=== PATIENT | male | born 1975 | race African-American/Black ===

== ENCOUNTER 2016-07-27 14:08 | Emergency (ER) | payer OTHER ==
[2016-07-27 14:31] VITALS: BP 150/107; PULSE 99; TEMP 98.3; BMI 34.4
[2016-07-27] MEDS ORDERED: IBUPROFEN 600 MG TABLET (FP) PO ONE ×2 (15:00→15:08)
--- NOTE | 2016-07-27 15:09 | PDOC ---
History of Present Illness - General Chief Complaint: Pain Stated Complaint: LEFT ANKLE INJURY Time Seen by Provider: 07/27/16 14:53 History Source: Patient Exam Limitations: No Limitations - History of Present Illness Initial Comments: CHIEF COMPLAINT: 41 y/o afebrile male with PMH HTN c/o atraumatic left ankle pain. HISTORY OF PRESENT ILLNESS: The patient states he was bowling last night and does not recall an injury but woke up this morning and his left ankle was very painful, swollen and he couldn't put pressure on it. Vital signs on arrival are notable for pulse of 150/107. REVIEW OF SYSTEMS: GENERAL/CONSTITUTIONAL: No fever/chills. No weakness. No weight change. MUSCULOSKELETAL: +left ankle swelling and pain. No neck or back pain. SKIN: No rash or easy bruising. NEUROLOGIC: No headache, vertigo, loss of consciousness, or loss of sensation. PHYSICAL EXAM: VITAL_SIGNS: within normal limits GENERAL_APPEARANCE: alert, cooperative, no obvious discomfort. MENTAL_STATUS: speech clear, oriented X 3, responds appropriately to questions. NEURO: motor intact and sensory intact in injured extremity. EXTREMITIES: good pulse in injured extremity. Minimal swelling to medial malleolus and top of left foot with TTP in both locations. Pain with flexion and extension. No calf TTP no bulging to achilles area. SKIN: warm, dry, good color. Past History - Past Medical History Allergies/Adverse Reactions: Allergies Allergy/AdvReac Type Severity Reaction Status Date / Time No Known Allergies Allergy Verified 07/27/16 14:27 Home Medications: Ambulatory Orders Naproxen [Naprosyn -] 500 mg PO BID #14 tablet 07/27/16 HTN: Yes - Psycho/Social/Smoking Cessation Hx Anxiety: No Suicidal Ideation: No Smoking History: Never smoked Have you smoked in the past 12 months: No Hx Alcohol Use: No Drug/Substance Use Hx: No Substance Use Type: Alcohol *Physical Exam - Vital Signs Last Vital Signs Temp Pulse Resp BP Pulse Ox 98.3 F 99 H 19 150/107 97 07/27/16 14:27 07/27/16 14:27 07/27/16 14:27 07/27/16 14:27 07/27/16 14:27 ED Treatment Course - RADIOLOGY Radiology Studies Ordered: Category Date Time Status ANKLE & FOOT-LEFT* [RAD] Stat Radiology 07/27/16 15:00 Ordered Medical Decision Making - Medical Decision Making A/P: 41 y/o male with atraumatic left foot and ankle pain. Possible gout. He informs me he has not taken his BP meds today. Plan is as follows: 1. xray 2. PO motrin Xray left foot/ankle IMPRESSION: No acute fracture seen. Suspect gout as patient continues to deny trauma. Will send rx for naproxen. Suggested he f/u with Dr. Henry and Dr. Azevedo within 1 week for follow up. Pt also given SISI bandage for comfort. The patient verbalizes understanding of all instructions, has no further questions and is awaiting discharge. *DC/Admit/Observation/Transfer Diagnosis at time of Disposition: Gout Qualifiers: Gout site: ankle Gout etiology: unspecified cause Laterality: left Chronicity: acute Qualified Code(s): M10.9 - Gout, unspecified - Discharge Dispostion Disposition: HOME Condition at time of disposition: Good - Prescriptions Prescriptions: Naproxen [Naprosyn -] 500 mg PO BID #14 tablet - Referrals Referrals: Thomas Henry MD [Primary Care Provider] - Jimi Azevedo MD [Staff Physician] - - Patient Instructions Printed Discharge Instructions: DI for Gout, How To Perform RICE (Rest, Ice, Compress, Elevate) Additional Instructions: Discharge Instructions: -A prescription was called to your pharmacy; please take as prescribed -Use SISI bandage for comfort. -Follow up with Dr. Henry within 1 week -Follow up with Dr. Azevedo within 1 week if no improvement in symptoms - Post Discharge Activity Work/School Note: Back to Work
== END 2016-07-27 16:11 | disposition home or self-care (01) ==
LOC: JERFT 14:08
DX: M10.9 Gout, unspecified (principal); I10 Essential (primary) hypertension
CPT/HCPCS: 73610-TC-LT; 73630-TC-LT; 99281-25

== ENCOUNTER 2016-10-22 12:41 | Emergency (ER) | payer OTHER ==
[2016-10-22 13:08] VITALS: BP 169/95; PULSE 91; TEMP 98.2; BMI 36.5
--- NOTE | 2016-10-22 13:41 | PDOC ---
History of Present Illness - General Chief Complaint: Cold Symptoms Stated Complaint: SORE THROAT Time Seen by Provider: 10/22/16 13:26 History Source: Patient - History of Present Illness Timing/Duration: reports: other Associated Symptoms: reports: cough. denies: chest pain/soreness, fever/chills , shortness of breath, wheezing Past History - Past Medical History Allergies/Adverse Reactions: Allergies Allergy/AdvReac Type Severity Reaction Status Date / Time No Known Allergies Allergy Verified 10/22/16 13:02 Home Medications: Ambulatory Orders NK [No Known Home Medication] 10/22/16 HTN: Yes - Psycho/Social/Smoking Cessation Hx Anxiety: No Suicidal Ideation: No Smoking History: Never smoked Have you smoked in the past 12 months: No Hx Alcohol Use: No Drug/Substance Use Hx: No Substance Use Type: Alcohol Review of Systems - Review of Systems Constitutional: No: Chills, Fever Respiratory: Yes: Cough. No: Shortness of Breath Cardiac (ROS): No: Chest Pain *Physical Exam - Vital Signs Last Vital Signs Temp Pulse Resp BP Pulse Ox 98.2 F 91 H 19 169/95 99 10/22/16 13:02 10/22/16 13:02 10/22/16 13:02 10/22/16 13:02 10/22/16 13:02 - Physical Exam General Appearance: Yes: Appropriately Dressed. No: Apparent Distress HEENT: positive: Normal ENT Inspection, Normal Voice. negative: Scleral Icterus (R), Scleral Icterus (L) Neck: positive: Supple Respiratory/Chest: positive: Lungs Clear, Normal Breath Sounds. negative: Respiratory Distress Cardiovascular: positive: Regular Rate, S1, S2 Extremity: positive: Normal Inspection Integumentary: positive: Dry, Warm Neurologic: positive: Fully Oriented, Alert, Normal Mood/Affect Medical Decision Making - Medical Decision Making 10/22/16 13:37 41 yo male, h/o HTN, here w/ productive cough x 1 month, worse at nights. Has been taking otc meds w/ some relief. Here today because he noticed "blood streak " in his phlegm on 1 occasion. No SOB, CP, f/c. Denies night sweats or weight loss. No tob use, sick contacts or recent travel See exam Cough M/l viral Stable w/ clear chest/lungs -dc w/ otc meds -pmd f/u *DC/Admit/Observation/Transfer Diagnosis at time of Disposition: URI (upper respiratory infection) Qualifiers: URI type: unspecified viral URI Qualified Code(s): J06.9 - Acute upper respiratory infection, unspecified; B97.89 - Other viral agents as the cause of diseases classified elsewhere - Discharge Dispostion Disposition: HOME Condition at time of disposition: Good - Patient Instructions Printed Discharge Instructions: DI for Viral Upper Respiratory Infection -- Adult Additional Instructions: Please follow up with your PMD
== END 2016-10-22 13:40 | disposition home or self-care (01) ==
LOC: JERFT 12:41
DX: J06.9 Acute upper respiratory infection, unspecified (principal); B97.89 Other viral agents as the cause of diseases classified elsewhere; I10 Essential (primary) hypertension
CPT/HCPCS: 99281-25

== ENCOUNTER 2018-01-28 03:53 | Emergency (ER) | payer OTHER ==
[2018-01-28 04:29] VITALS: PULSE 98; BMI 32.5
[2018-01-28] MEDS ORDERED: NAPROXEN 500 MG TABLET (FP) PO ONE (04:54)
--- NOTE | 2018-01-28 04:59 | PDOC ---
History of Present Illness - General Chief Complaint: Pain Stated Complaint: R FOOT PAIN Time Seen by Provider: 01/28/18 04:46 History Source: Patient Exam Limitations: No Limitations - History of Present Illness Initial Comments: 01/28/18 04:55 HISTORY OF PRESENT ILLNESS: 43-year-old male with past medical history of hypertension presents emergency Department with atraumatic right foot pain for the past 2 days. Patient states he was sitting in bed when he felt the pain which is slowly grown over the past 2 days is currently 7/10. No recent travel or sick contacts. PAST MEDICAL HISTORY: HTN SURGICAL HISTORY: Denies ALLERGIES: No known drug allergies REVIEW OF SYSTEMS General/Constitutional: Denies fever or chills. Denies weakness, weight change. HEENT: Denies change in vision. Denies ear pain or discharge. Denies sore throat. Cardiovascular: Denies chest pain or shortness of breath. Respiratory: Denies cough, wheezing, or hemoptysis. Gastrointestinal: Denies nausea, vomiting, diarrhea or constipation. Denies rectal bleeding. Genitourinary: Denies dysuria, frequency, or change in urination. Musculoskeletal: Right foot pain. Denies neck or back pain. Skin and breasts: Denies rash or easy bruising. Neurologic: Denies headache, vertigo, loss of consciousness, or loss of sensation. Psychiatric: Denies depression or anxiety. Endocrine: Denies increased thirst. Denies abnormal weight change. Hematologic/Lymphatic: Denies anemia, easy bleeding, or history of blood clots. Allergic/Immunologic: Denies hives or skin allergy. Denies latex allergy. PHYSICAL EXAM General Appearance: Well-appearing, appropriately dressed. No apparent distress , no intoxication. HEENT: EOMI, PERRLA, normal ENT inspection, normal voice, TMs normal, pharynx normal. No conjunctival pallor. No photophobia, scleral icterus. Neck: Supple. Trachea midline. No tenderness, rigidity, carotid bruit, stridor , lymphadenopathy, or thyromegaly. Respiratory/Chest: Lungs CTAB. No shortness of breath, chest tenderness, respiratory distress, accessory muscle use. No crackles, rales, rhonchi, stridor , wheezing, dullness Cardiovascular: RRR. S1, S2. No JVD, murmur, bradycardia, tachycardia. Vascular Pulses: Dorsalis-Pedis (R): 2+, Dorsalis-Pedis (L): 2+ Gastrointestinal/Abdominal: Normal bowel sounds. Abdomen soft, non-distended. No tenderness or rebound tenderness. No organomegaly, pulsatile mass, guarding, hernia, hepatomegaly, splenomegaly. Lymphatic: No adenopathy, tenderness. Musculoskeletal/Extremities: Normal inspection. FROM of all extremities, normal capillary refill. Pelvis Stable. No CVA tenderness. Right 5th metatarsal tenderness. Integumentary: Appropriate color, dry, warm. No cyanosis, erythema, jaundice or rash Neurologic: planning consultant II-XII intact. Fully oriented, alert. Appropriate mood/affect. Motor strength 5/5. No appreciable EOM palsy, facial droop or sensory deficit. Past History - Past Medical History Allergies/Adverse Reactions: Allergies Allergy/AdvReac Type Severity Reaction Status Date / Time No Known Allergies Allergy Verified 01/28/18 04:27 Home Medications: Ambulatory Orders Nebivolol HCl [Bystolic] 10 mg PO DAILY 01/28/18 Olmesartan/Amlodipin/Hcthiazid [Tribenzor 40-10-12.5 mg Tablet] 1 each PO DAILY 01/28/18 traMADol HCL [Ultram -] 50 mg PO Q6H PRN #20 tablet MDD 4 01/28/18 COPD: No HTN: Yes - Suicide/Smoking/Psychosocial Hx Smoking History: Never smoked Have you smoked in the past 12 months: No Information on smoking cessation initiated: No Hx Alcohol Use: No Drug/Substance Use Hx: No Substance Use Type: Alcohol *Physical Exam - Vital Signs Last Vital Signs Temp Pulse Resp BP Pulse Ox 98.4 F 98 H 20 159/98 99 01/28/18 04:27 01/28/18 04:27 01/28/18 04:27 01/28/18 04:27 01/28/18 04:27 ED Treatment Course - RADIOLOGY Radiology Studies Ordered: Category Date Time Status ANKLE & FOOT-RIGHT* [RAD] Stat Radiology 01/28/18 04:54 Ordered Medical Decision Making - Medical Decision Making 01/28/18 04:58 A/P: 43-year-old male with atraumatic right foot pain for 2 days Tenderness to palpation over the fifth metatarsal of the right foot No deformities or crepitus palpated X-rays, Annerosyn, reassess 01/28/18 05:35 X-ray of the foot and ankle as read by me: No acute fractures or dislocations noted. No significant change from study done 09/14/14. I'll discharge the patient home with podiatry follow-up. *DC/Admit/Observation/Transfer Diagnosis at time of Disposition: Foot pain Qualifiers: Laterality: right Qualified Code(s): M79.671 - Pain in right foot - Discharge Dispostion Disposition: HOME Condition at time of disposition: Stable Decision to Admit order: No - Prescriptions Prescriptions: traMADol HCL [Ultram -] 50 mg PO Q6H PRN #20 tablet MDD 4 PRN Reason: Pain - Referrals Referrals: Thomas Henry MD [Primary Care Provider] - Bora Mckeon MD [Staff Physician] - - Patient Instructions Additional Instructions: Take Naprosyn as needed for pain. Follow manufacture's instructions for appropriate dosage. You have been given a referral for [employer] [facility]. Call to make an appointment for continued evaluation. Return to emergency department for any concerns. - Post Discharge Activity
[2018-01-28] MEDS ORDERED: ACETAMINOPHEN 500 MG TABLET (FP) PO ONE (05:53)
[2018-01-28 06:08] VITALS: BP 146/78; TEMP 98.5
== END 2018-01-28 06:09 | disposition home or self-care (01) ==
LOC: JER 03:53
DX: M79.671 Pain in right foot (principal)
CPT/HCPCS: 73610-TC-RT-FY; 73630-TC-RT-FY; 99281-25

== ENCOUNTER → 2018-04-02 | Emergency (ER) | payer OTHER ==
[2018-04-02 02:25] VITALS: BP 141/72; PULSE 82; TEMP 97.9; BMI 28.3
== END | disposition left against medical advice (07) ==
LOC: JER 00:56
DX: Z53.21 Procedure and treatment not carried out due to patient leaving prior to being seen by health care provider (principal)
CPT/HCPCS: 99281-25

== ENCOUNTER 2019-01-26 14:39 | Inpatient (IN) | payer OTHER ==
--- NOTE | 2019-01-26 16:32 | PDOC ---
History of Present Illness - General Chief Complaint: Abnormal Lab Results (Outside) Stated Complaint: Abnormal Lab Results Time Seen by Provider: 01/26/19 15:47 History Source: Patient Exam Limitations: No Limitations - History of Present Illness Initial Comments: 01/26/19 19:22 44 yo M with a hx of ETOH abuse and HTN presents with atraumatic right knee pain and swelling. Has been ongoing for 2 days, with worsening today. Sharp pain with range of motion with a throbbing sensation at rest. Denies fevers. Denies recent ticks. Denies innoculation in the area. Denies hx of gout, but endorses father having it. Has a hx of binge drinking liquor. PE: drained 30 cc of cloudy yellow fluid without pus. Past History - Past Medical History Allergies/Adverse Reactions: Allergies Allergy/AdvReac Type Severity Reaction Status Date / Time No Known Allergies Allergy Verified 04/02/18 02:25 Home Medications: Ambulatory Orders Nebivolol HCl [Bystolic] 10 mg PO DAILY 01/28/18 Olmesartan/Amlodipin/Hcthiazid [Tribenzor 40-10-12.5 mg Tablet] 1 each PO DAILY 01/28/18 traMADol HCL [Ultram -] 50 mg PO Q6H PRN #20 tablet MDD 4 01/28/18 COPD: No HTN: Yes - Psycho Social/Smoking Cessation Hx Smoking History: Never smoked Have you smoked in the past 12 months: No Information on smoking cessation initiated: No Hx Alcohol Use: No Drug/Substance Use Hx: No Substance Use Type: Alcohol *Physical Exam - Vital Signs Last Vital Signs Temp Pulse Resp BP Pulse Ox 98.8 F 85 19 162/100 99 01/26/19 14:43 01/26/19 14:43 01/26/19 14:43 01/26/19 14:43 01/26/19 14:43 ED Treatment Course - LABORATORY CBC & Chemistry Diagram: 01/26/19 16:30 01/26/19 16:30
[2019-01-26] MEDS ORDERED: LIDOCAINE HCL 1% PRESERVATIVE FREE - 30ML VIAL IO ONE (16:38)
[2019-01-26 16:43] LABS: BASO % 1.1 % (0-2.0); EOS % 2.3 % (0-4.5); HEMATOCRIT 38.1 % (35.4-49); HEMOGLOBIN 13.4 GM/dL (11.7-16.9); LYMPH % 20.3 % (8-40); MCH 34.1 pg (25.7-33.7); MCHC 35.3 g/dl (32.0-35.9); MEAN CELL VOLUME 96.7 fl (80-96); MEAN PLT VOLUME 9.5 fl (7.5-11.1); MONO % 12.3 % (3.8-10.2); PLATELET COUNT 232 K/MM3 (134-434); RBC 3.94 M/mm3 (4.00-5.60); RDW 16.4 % (11.9-15.9); WHITE BLOOD COUNT 8.7 K/mm3 (4.0-10.0)
--- NOTE | 2019-01-26 16:48 | PDOC ---
Attending Attestation - Resident Resident Name: Terrance Lazar - ED Attending Attestation I have performed the following: I have examined & evaluated the patient, The case was reviewed & discussed with the resident, I agree w/resident's findings & plan, Exceptions are as noted - HPI HPI: 01/26/19 16:46 44 M with h/o ETOH abuse presents to ED with R knee pain and abnormal labs. Pt reports several days of R knee swelling and pain. Denies any trauma or injury. No ankle swelling. NO h/o DVT. No recent travel/immobilization. Pt denies F/C. Pt was seen at [facility] and had bloodwork done that revealed K 2.3. Pt was subsequently sent to ED for further evaluation. - Physicial Exam PE: 01/26/19 16:47 "GENERAL: Awake, alert, and fully oriented, in no acute distress. HEAD: No signs of trauma EYES: PERRLA, EOMI, sclera anicteric, conjunctiva clear ENT: Auricles normal inspection, hearing grossly normal, nares patent, oropharynx clear without exudates. Moist mucosa NECK: Nontender, no stepoffs, Normal ROM, supple, no lymphadenopathy, JVD, or masses LUNGS: Breath sounds equal, clear to auscultation bilaterally. No wheezes, and no crackles HEART: Regular rate and rhythm, normal S1 and S2, no murmurs, rubs or gallops ABDOMEN: Soft, nontender, normoactive bowel sounds. No guarding, no rebound. No masses EXTREMITIES: + R knee with joint effusion, erythema, ROM limited 2/2 pain NEUROLOGICAL: Cranial nerves II through XII intact. 5/5 strength and sensation in all extremities, Normal speech, normal gait, normal cerebellar function SKIN: Warm, Dry, normal turgor, no rashes or lesions noted. - Medical Decision Making 01/26/19 16:47 44 M with R knee pain and swelling. Pseudogout vs gout. Septic arthritis unlikely as pt afebrile. Pt also with reported K 2.3, will recheck. - CBC, CMP, Mg, Phos, uric acid - XR R knee - Arthrocentesis 01/26/19 17:35 Repeat K 3.4 without repletion. Suspect lab error at urgent care. Uric acid elevated, consistent with gout 01/26/19 18:41 Arthrocentesis performed with cloudy yellow synovial fluid Synovial fluid studies sent
[2019-01-26 17:19] LABS: ALBUMIN 3.7 g/dl (3.4-5.0); BLOOD UREA NITROGEN 18.9 mg/dL (7-18); CALCIUM 8.7 mg/dL (8.5-10.1); CREATININE 1.5 mg/dL (0.55-1.3); MAGNESIUM 1.9 mg/dL (1.8-2.4); PHOSPHOROUS 4.4 mg/dL (2.5-4.9); POTASSIUM 3.4 mmol/L (3.5-5.1); TOT PROT 7.6 g/dl (6.4-8.2); URIC ACID 10.5 mg/dL (2.6-7.2)
[2019-01-26] MEDS ORDERED: POTASSIUM CHLORIDE TABS 20 MEQ TABLET.ER (FP) PO ONE ×2 (17:35→17:39)
[2019-01-26] MEDS ORDERED: LIDOCAINE HCL 1%, 10 MG/ML (20ML VIAL) ONE (17:39)
[2019-01-26] MEDS ORDERED: SODIUM CHLORIDE 1,000 ML IV STA (18:07)
[2019-01-26] MEDS ORDERED: predniSONE 20 MG TABLET (UD) PO ONE (19:54)
--- NOTE | 2019-01-26 19:54 | PDOC ---
ED Treatment Course - LABORATORY CBC & Chemistry Diagram: 01/26/19 16:30 01/26/19 16:30 Medical Decision Making - Medical Decision Making Pt signed out to me by Dr. Lazar, see prior note. 44 year old male with PMH ETOH abuse, HTN presented to ED for atraumatic right knee pain/swelling x2 days. Knee was erythematous and warm. Arthrocentesis performed by prior resident, Dr. Lazar, syncovial fluid reported to be sent. Pt has DOMINIC and mild hypokalemia, treating with IV fluids/PO potassium. Pt to be discharged and treated for gout. Initial Vital Signs Temp Pulse Resp BP Pulse Ox 98.8 F 85 19 162/100 99 01/26/19 14:43 01/26/19 14:43 01/26/19 14:43 01/26/19 14:43 01/26/19 14:43 Afebrile. No tachycardia. No tachypnea. Mild hypertension. No hypoxia on room air. ED Medications Discontinued Medications Generic Name Dose Route Start Last Admin Trade Name Freq PRN Reason Stop Dose Admin Sodium Chloride 1,000 mls @ 1,000 mls/hr 01/26/19 18:07 01/26/19 19:52 Normal Saline - IV 01/26/19 19:06 1,000 mls/hr ASDIR STA Administration Lidocaine HCl 20 mg 01/26/19 16:38 01/26/19 17:42 Xylocaine 1% P/F - IO 01/26/19 16:39 20 mg ONCE ONE Administration Potassium Chloride 20 meq 01/26/19 17:35 01/26/19 17:42 K-Dur - PO 01/26/19 17:36 20 meq ONCE ONE Administration 01/26/19 22:23 Laboratory Last Values WBC 8.7 K/mm3 (4.0-10.0) 01/26/19 16:30 RBC 3.94 M/mm3 (4.00-5.60) L 01/26/19 16:30 Hgb 13.4 GM/dL (11.7-16.9) 01/26/19 16:30 Hct 38.1 % (35.4-49) 01/26/19 16:30 MCV 96.7 fl (80-96) H 01/26/19 16:30 MCH 34.1 pg (25.7-33.7) H 01/26/19 16:30 MCHC 35.3 g/dl (32.0-35.9) 01/26/19 16:30 RDW 16.4 % (11.9-15.9) H 01/26/19 16:30 Plt Count 232 K/MM3 (134-434) 01/26/19 16:30 MPV 9.5 fl (7.5-11.1) 01/26/19 16:30 Absolute Neuts (auto) 5.6 K/mm3 (1.5-8.0) 01/26/19 16:30 Neutrophils % 64.0 % (42.8-82.8) 01/26/19 16:30 Lymphocytes % 20.3 % (8-40) 01/26/19 16:30 Monocytes % 12.3 % (3.8-10.2) H 01/26/19 16:30 Eosinophils % 2.3 % (0-4.5) 01/26/19 16:30 Basophils % 1.1 % (0-2.0) 01/26/19 16:30 Nucleated RBC % 0 % (0-0) 01/26/19 16:30 Sodium 137 mmol/L (136-145) 01/26/19 16:30 Potassium 3.4 mmol/L (3.5-5.1) L 01/26/19 16:30 Chloride 98 mmol/L (98-107) 01/26/19 16:30 Carbon Dioxide 28 mmol/L (21-32) 01/26/19 16:30 Anion Gap 11 MMOL/L (8-16) 01/26/19 16:30 BUN 18.9 mg/dL (7-18) H 01/26/19 16:30 Creatinine 1.5 mg/dL (0.55-1.3) H 01/26/19 16:30 Est GFR (CKD-EPI)AfAm 64.69 01/26/19 16:30 Est GFR (CKD-EPI)NonAf 55.82 01/26/19 16:30 Random Glucose 75 mg/dL (74-106) 01/26/19 16:30 Uric Acid 10.5 mg/dL (2.6-7.2) H 01/26/19 16:30 Calcium 8.7 mg/dL (8.5-10.1) 01/26/19 16:30 Phosphorus 4.4 mg/dL (2.5-4.9) 01/26/19 16:30 Magnesium 1.9 mg/dL (1.8-2.4) 01/26/19 16:30 Total Bilirubin 1.0 mg/dL (0.2-1) 01/26/19 16:30 AST 31 U/L (15-37) 01/26/19 16:30 ALT 35 U/L (13-61) 01/26/19 16:30 Alkaline Phosphatase 64 U/L (45-117) 01/26/19 16:30 Total Protein 7.6 g/dl (6.4-8.2) 01/26/19 16:30 Albumin 3.7 g/dl (3.4-5.0) 01/26/19 16:30 Synovial Source Synovial 01/26/19 18:46 Synovial WBC 58480 /mm3 01/26/19 18:46 Synovial RBC 1957 /mm3 01/26/19 18:46 Synovial Neutrophils 89 % 01/26/19 18:46 Synovial Lymphocytes 9 % 01/26/19 18:46 Synovial Monocytes 2 % 01/26/19 18:46 Synovial Histocytes 0 % 01/26/19 18:46 Synovial Plasma Cells 0 % 01/26/19 18:46 Synovial LE Cells 0 % 01/26/19 18:46 Synovial Macrophages 0 % 01/26/19 18:46 Synovial Other Cells No Result Required. 01/26/19 18:46 Synovial Diff Comment 01/26/19 18:46 Mild hypokalemia without hypomagnesium. Elevated uric acid. Elevated WBC >2K. Lab reported crystals will be back tomorrow. Medications ordered: prednisone 40 mg PO once -NSAIDs and Colchicine C/A in DOMINIC Dr. Troncoso, ID, paged for recommendations. 01/26/19 23:04 Dr. Troncoso recommended Vancomycin/Zosyn treatment, admission, and he will consult tomorrow. Pt to be admitted and treated for septic arthritis until crystal testing comes back. Discharge - Discharge Information Problems reviewed: Yes Clinical Impression/Diagnosis: Septic arthritis, Gout Condition: Stable - Admission Yes - Additional Discharge Information Prescriptions: predniSONE [Deltasone -] 40 mg PO DAILY #20 tablet - Follow up/Referral - Patient Discharge Instructions - Post Discharge Activity
[2019-01-26] MEDS ORDERED: predniSONE 20 MG TABLET (UD) ONE (21:12)
[2019-01-26 22:00] LABS: SYNOVIAL FLUID LYMPHOCYTES 9 %; SYNOVIAL FLUID MONOCYTES 2 %; SYNOVIAL FLUID NEUTROPHILS 89 %; SYNOVIAL FLUID RBC 1957 /mm3; SYNOVIAL FLUID SOURCE SYNOVIAL
[2019-01-26 22:01] LABS: SYNOVIAL FLUID HISTIOCYTES 0 %; SYNOVIAL FLUID MACROPHAGES 0 %; SYNOVIAL FLUID PLASMA CELLS 0 %
[2019-01-26] MEDS ORDERED: VANCOMYCIN 1,000 MG in DEXTROSE 5%-WATER - 250 ML IVPB ONE (22:59)
[2019-01-26] MEDS ORDERED: PIPERACILLIN/TAZOB 4.5 GM 4.5 GM in DEXTROSE 5%-WATER 100 ML IVPB ONE (22:59)
[2019-01-26] MEDS ORDERED: PIPERACILLIN/TAZOB 4.5 GM 4.5 GM/100 ML BAG IVPB ONE (23:43)
[2019-01-26] MEDS ORDERED: VANCOMYCIN 1 GRAM (PRE-DOCKED) 1,000 MG/250 ML BAG IVPB ONE (23:43)
--- NOTE | 2019-01-27 00:10 | PN ---
Teaching Attending Note Name of Resident: Dionne Bridges ATTENDING PHYSICIAN STATEMENT I saw and evaluated the patient. I reviewed the resident's note and discussed the case with the resident. I agree with the resident's findings and plan as documented. SUBJECTIVE: 44-year-old male with a history of EtOH abuse and hypertension presented complaining of atraumatic right knee pain and swelling for 2 days. Denied any fevers or chills. Was seen at urgent care center who referred him to hospital. Arthrocentesis was performed in ER by resident and was noted to have dark yellow synovial fluid nonpurulent. Suspected to have inflammatory arthritis, Dr. de los santos was called and recommended vancomycin and Zosyn To cover for possible infectious etiology.Of note, patient was given a dose of prednisone in the emergency department. Patient denied any history of Lyme disease or any known tick bites. Denies any personal history of gout however reported that his father had gout. OBJECTIVE: Last Vital Signs Temp Pulse Resp BP Pulse Ox 98.3 F 85 19 167/100 100 01/26/19 17:23 01/26/19 17:23 01/26/19 17:23 01/26/19 17:23 01/26/19 17:23 GENERAL: Well developed, well nourished. Awake and alert. No acute distress. HEENT: Normocephalic, atraumatic. PERRLA, EOMI. No conjunctival pallor. Sclera are non- icteric. Moist mucous membranes. Oropharynx is clear. NECK: Supple. Full ROM. No JVD. Carotid pulses 2+ and symmetric, without bruits. No thyromegaly. No lymphadenopathy. CARDIOVASCULAR: Regular rate and rhythm. No murmurs, rubs, or gallops. Distal pulses are 2+ and symmetric. PULMONARY: No evidence of respiratory distress. Lungs clear to auscultation bilaterally. No wheezing, rales or rhonchi. ABDOMINAL: Soft. Non-tender. Non-distended. No rebound or guarding. No organomegaly. Normoactive bowel sounds. MUSCULOSKELETAL Normal range of motion at all joints. No bony deformities or tenderness. No CVA tenderness. EXTREMITIES: Right knee mildly inflamed, mildly warm and tender to touch SKIN: Warm and dry. Normal capillary refill. No rashes. No jaundice. PSYCHIATRIC: Cooperative. Good eye contact. Appropriate mood and affect. Abnormal Lab Results 1001/26/19 01/26/19 16:30 16:30 16:30 RBC 3.94 L MCV 96.7 H MCH 34.1 H RDW 16.4 H Monocytes % 12.3 H Potassium 3.4 L BUN 18.9 H Creatinine 1.5 H Uric Acid 10.5 H Imaging reviewed ASSESSMENT AND PLAN: Right knee inflammatory arthritis. Right knee synovial fluid was yellow in color with WBC of 12 K and neutrophil predominance which is more suggestive of crystal arthropathy. Suspect gout versus pseudogout. Less likely to be infectious arthritis however would obtain Gram stain and culture of synovial fluid. DOMINIC versus CKD, no prior chemistry to compare. Patient denied history of kidney disease that he knows about Hypokalemia Admit to MedSurg Continue empiric vancomycin and Zosyn Blood cultures Gram stain and synovial fluid bacterial culture ID consultation ESR and CRP Await crystals in synovial fluid Tylenol for pain Avoid NSAIDs in this case due to DOMINIC versus CKD IV fluid hydration Much lower suspicion however can send a Lyme serology as Lyme disease can present with mono articular arthritis EtOH cessation and hold antihypertensive medication as it contains hydrochlorothiazide DVT prophylaxis with heparin subcutaneously
[2019-01-27 03:52] VITALS: BMI 34.1
[2019-01-27] MEDS ORDERED: ACETAMINOPHEN 325 MG TABLET (FP) PO PRN (04:39)
[2019-01-27] MEDS: SODIUM CHLORIDE 1,000 ML IV SCH ×2 (05:08→16:24)
[2019-01-27] MEDS: HEPARIN NA (PORCINE) 5,000 UNITS/ML 1ML VIAL SQ SCH ×2 (05:10→13:43)
--- NOTE | 2019-01-27 06:52 | HP ---
CHIEF COMPLAINT: right knee pain PCP: Dr. Arthur HISTORY OF PRESENT ILLNESS: 44 y/o male w/ hx ETOH abuse and HTN presents with 2 days of right knee pain and swelling. 4 days ago, patient had steak and cheese for lunch and 2 bagels and cheese for breakfast. The patient describes his pain as an throbbing , constant ,rated a 7/10 and w/o radiation.He denies fever, chills, vomiting, trauma, facial rash ,BANUELOS, hematuria, dysuria, penile discharge, history of bleeding disorder or recent illness. The pain is exacerbated by ambulation and relieved by nothing including Advil.The patient admits to binge drinking 1 day ago which increased his swelling. He endorsed similar symptoms in the past but in his left ankle at that time with last episode one month ago. Father w/ HX of gout.He denies family history of lupus or RA. Last STI test was 6 months ago and was normal. In the ED, arthrocentesis was performed and 30cc of yellow non purulent fluid was removed and sent for analysis. ER course was notable for: (1) K :3.4, creatinine 1.5, uric acid 105 (2)Synovial fluid anaylsis sent, xray of knee showed no fx, Prednisone 40 (3) ID consult Dr. Aba doherty/gabriel until cultures return Recent Travel: PAST MEDICAL HISTORY: PAST SURGICAL HISTORY: left arm tendon repair Social History: Smoking:denies tobacco use Alcohol: ETOH use last time yesterday reports binge drinking on weekends Drugs: denies Allergies No Known Allergies Allergy (Verified 04/02/18 02:25) HOME MEDICATIONS: Home Medications Medication Instructions Recorded Nebivolol HCl [Bystolic] 10 mg PO DAILY 01/28/18 Olmesartan/Amlodipin/Hcthiazid 1 each PO DAILY 01/28/18 [Tribenzor 40-10-12.5 mg Tablet] traMADol HCL [Ultram -] 50 mg PO Q6H PRN #20 tablet MDD 4 01/28/18 predniSONE [Deltasone -] 40 mg PO DAILY #20 tablet 01/26/19 Amlodipine Besylate 5 mg DAILY 01/27/19 Fluocinonide 0.05% Cream [Lidex 1 applic TP DAILY 01/27/19 0.05% Cream -] Hydrochlorothiazide [Hctz -] 25 mg PO DAILY 01/27/19 REVIEW OF SYSTEMS CONSTITUTIONAL: Absent: fever, chills, diaphoresis, generalized weakness, malaise, loss of appetite, weight change HEENT: Absent: rhinorrhea, nasal congestion, throat pain, throat swelling, difficulty swallowing, mouth swelling, ear pain, eye pain, visual changes CARDIOVASCULAR: Absent: chest pain, syncope, palpitations, irregular heart rate, lightheadedness , peripheral edema RESPIRATORY: Absent: cough, shortness of breath, dyspnea with exertion, orthopnea, wheezing, stridor, hemoptysis GASTROINTESTINAL: Absent: abdominal pain, abdominal distension, nausea, vomiting, diarrhea, constipation, melena, hematochezia GENITOURINARY: Absent: dysuria, frequency, urgency, hesitancy, hematuria, flank pain, genital pain MUSCULOSKELETAL: arthralgia, joint swelling Absent: myalgia,back pain, neck pain SKIN: Absent: rash, itching, pallor HEMATOLOGIC/IMMUNOLOGIC: Absent: easy bleeding, easy bruising, lymphadenopathy, frequent infections ENDOCRINE: Absent: unexplained weight gain, unexplained weight loss, heat intolerance, cold intolerance NEUROLOGIC: Absent: headache, focal weakness or paresthesias, dizziness, unsteady gait, seizure, mental status changes, bladder or bowel incontinence PSYCHIATRIC: Absent: anxiety, depression, suicidal or homicidal ideation, hallucinations. PHYSICAL EXAMINATION Vital Signs - 24 hr 01/26/19 01/26/19 01/27/19 14:43 17:23 01:39 Temperature 98.8 F 98.3 F Pulse Rate 85 Pulse Rate [ 85 85 Apical] Respiratory 19 19 20 Rate Blood Pressure 162/100 Blood Pressure 167/100 168/98 [Left Arm] O2 Sat by Pulse 99 100 99 Oximetry (%) 01/27/19 01/27/19 01/27/19 03:42 03:55 05:19 Temperature 98.8 F 98.0 F Pulse Rate 90 93 H Pulse Rate [ Apical] Respiratory 20 20 20 Rate Blood Pressure 141/93 147/100 Blood Pressure [Left Arm] O2 Sat by Pulse 98 Oximetry (%) GENERAL: Awake, alert, and fully oriented, in no acute distress. HEAD: Normal with no signs of trauma. EYES: Pupils equal, round and reactive to light, extraocular movements intact, sclera anicteric, conjunctiva clear. No lid lag. EARS, NOSE, THROAT: Ears normal, nares patent, oropharynx clear without exudates. Moist mucous membranes. NECK: Normal range of motion, supple without lymphadenopathy, JVD, or masses. LUNGS: Breath sounds equal, clear to auscultation bilaterally. No wheezes, and no crackles. No accessory muscle use. HEART: Regular rate and rhythm, normal S1 and S2 without murmur, rub or gallop. ABDOMEN: Soft, nontender, obese, normoactive bowel sounds, no guarding, no rebound, no masses. No hepatomegaly or splenomegaly. MUSCULOSKELETAL: Normal range of motion at joints except for R knee extension. + tenderness. No CVA tenderness. UPPER EXTREMITIES: 2+ pulses, warm, well-perfused. No cyanosis. No clubbing. No peripheral edema. LOWER EXTREMITIES: 2+ pulses, warm, well-perfused. No calf tenderness. No peripheral edema. PSYCHIATRIC: Cooperative. Good eye contact. Appropriate mood and affect. SKIN: Warm, dry, normal turgor, no rashes or lesions noted, normal capillary refill. Laboratory Results - last 24 hr 01/26/19 01/26/19 01/26/19 16:30 16:30 16:30 WBC 8.7 RBC 3.94 L Hgb 13.4 Hct 38.1 MCV 96.7 H MCH 34.1 H MCHC 35.3 RDW 16.4 H Plt Count 232 MPV 9.5 Absolute Neuts (auto) 5.6 Neutrophils % 64.0 Lymphocytes % 20.3 Monocytes % 12.3 H Eosinophils % 2.3 Basophils % 1.1 Nucleated RBC % 0 Sodium 137 Potassium 3.4 L Chloride 98 Carbon Dioxide 28 Anion Gap 11 BUN 18.9 H Creatinine 1.5 H Est GFR (CKD-EPI)AfAm 64.69 Est GFR (CKD-EPI)NonAf 55.82 Random Glucose 75 Uric Acid 10.5 H Calcium 8.7 Phosphorus 4.4 Magnesium 1.9 Total Bilirubin 1.0 AST 31 ALT 35 Alkaline Phosphatase 64 Total Protein 7.6 Albumin 3.7 Synovial Source Synovial WBC Synovial RBC Synovial Neutrophils Synovial Lymphocytes Synovial Monocytes Synovial Histocytes Synovial Plasma Cells Synovial LE Cells Synovial Macrophages Synovial Other Cells Synovial Diff Comment 01/26/19 18:46 WBC RBC Hgb Hct MCV MCH MCHC RDW Plt Count MPV Absolute Neuts (auto) Neutrophils % Lymphocytes % Monocytes % Eosinophils % Basophils % Nucleated RBC % Sodium Potassium Chloride Carbon Dioxide Anion Gap BUN Creatinine Est GFR (CKD-EPI)AfAm Est GFR (CKD-EPI)NonAf Random Glucose Uric Acid Calcium Phosphorus Magnesium Total Bilirubin AST ALT Alkaline Phosphatase Total Protein Albumin Synovial Source Synovial Synovial WBC 01927 Synovial RBC 1957 Synovial Neutrophils 89 Synovial Lymphocytes 9 Synovial Monocytes 2 Synovial Histocytes 0 Synovial Plasma Cells 0 Synovial LE Cells 0 Synovial Macrophages 0 Synovial Other Cells No Result Required. Synovial Diff Comment ASSESSMENT/PLAN: 44 y/o male w/ hx ETOH abuse and HTN presents with 2 days of right knee pain and swelling. admitted for inflammatory arthritis; r/o septic arthritis Acute monoarthritis : most likely inflammatory vs septic arthritis SF WBC 32122, RBC 1957, Neutrophils 80 non inflammatory causes unlikely due high SF WBC >2k sepsis cant yet be r/o despite WBC <50k ID Dr Troncoso consulted. rec cont Vanc and zosyn until analysis and cultures return Blood cultures sent for r/o hematogenous seeding ESR and CRP for inflammatory markers though unlikely like serology ( endemic area) [facility] sent per pt recent STD screen WNL with no urinary symptoms tylenol for pain. Avoid steroids for now until septic r/o NSAIDS and Colchicine C/i due to DOMINIC/CKD Do Not HTZD as it can cont to increase serum Uric acid HTN Resume meds except for HTZD once med rec confirm DVT Hep subQ Visit type - Emergency Visit Emergency Visit: Yes ED Registration Date: 01/26/19 Care time: The patient presented to the Emergency Department on the above date and was hospitalized for further evaluation of their emergent condition. - New Patient This patient is new to me today: Yes Date on this admission: 01/27/19 - Critical Care Critical Care patient: No ATTENDING PHYSICIAN STATEMENT I saw and evaluated the patient. I reviewed the resident's note and discussed the case with the resident. I agree with the resident's findings and plan as documented. SUBJECTIVE: OBJECTIVE: ASSESSMENT AND PLAN:
[2019-01-27] MEDS ORDERED: PIPERACILLIN/TAZOB 4.5 GM 4.5 GM in DEXTROSE 5%-WATER 100 ML IVPB ONE (08:00)
[2019-01-27] MEDS ORDERED: POTASSIUM CHLORIDE TABS 20 MEQ TABLET.ER (FP) PO ONE (09:19)
[2019-01-27] MEDS ORDERED: PIPERACILLIN/TAZOBACTAM 4.5 GM VIAL IVPB ONE (10:06)
[2019-01-27] MEDS ORDERED: DEXTROSE 5%-WATER 100 ML IVPB ONE (10:06)
--- NOTE | 2019-01-27 11:31 | CON.ID ---
Consult Consult Specialty:: infectious diseases Referred by:: Hospitalist Reason for Consultation:: rt knee effusion - History of Present Illness Chief Complaint: swelling of the rt knee History of Present Illness: 44 y/o male w/ hx ETOH abuse and HTN presents with 2 days of right knee pain and swelling. 4 days ago, patient had steak and cheese for lunch and 2 bagels and cheese for breakfast. The patient describes his pain as an throbbing , constant ,rated a 7/10 and w/o radiation.He denies fever, chills, vomiting, trauma, facial rash ,BANUELOS, hematuria, dysuria, penile discharge, history of bleeding disorder or recent illness. The pain is exacerbated by ambulation and relieved by nothing including Advil.The patient admits to binge drinking 1 day ago which increased his swelling. He endorsed similar symptoms in the past but in his left ankle at that time with last episode one month ago. Father w/ HX of gout.He denies family history of lupus or RA. Last STI test was 6 months ago and was normal. In the ED, arthrocentesis was performed and 30cc of yellow non purulent fluid was removed and sent for analysis. - Alcohol/Substance Use Hx Alcohol Use: Yes - Smoking History Smoking history: Never smoked Have you smoked in the past 12 months: No Home Medications - Allergies Allergies/Adverse Reactions: Allergies Allergy/AdvReac Type Severity Reaction Status Date / Time No Known Allergies Allergy Verified 04/02/18 02:25 - Home Medications Home Medications: Ambulatory Orders Nebivolol HCl [Bystolic] 10 mg PO DAILY 01/28/18 Olmesartan/Amlodipin/Hcthiazid [Tribenzor 40-10-12.5 mg Tablet] 1 each PO DAILY 01/28/18 traMADol HCL [Ultram -] 50 mg PO Q6H PRN #20 tablet MDD 4 01/28/18 predniSONE [Deltasone -] 40 mg PO DAILY #20 tablet 01/26/19 Amlodipine Besylate 5 mg DAILY 01/27/19 Fluocinonide 0.05% Cream [Lidex 0.05% Cream -] 1 applic TP DAILY 01/27/19 Hydrochlorothiazide [Hctz -] 25 mg PO DAILY 01/27/19 Physical Exam Vital Signs: Vital Signs Temperature 98.0 F 01/27/19 05:19 Pulse Rate 93 H 01/27/19 05:19 Respiratory Rate 20 01/27/19 05:19 Blood Pressure 147/100 01/27/19 05:19 O2 Sat by Pulse Oximetry (%) 98 01/27/19 03:55 Labs: CBC, BMP 01/26/19 16:30 01/26/19 16:30
[2019-01-27] MEDS ORDERED: VANCOMYCIN 1 GRAM (PRE-DOCKED) 1,000 MG/250 ML BAG IVPB ONE (12:00)
[2019-01-27] MEDS ORDERED: NEBIVOLOL 10 MG TABLET (FP) PO SCH (13:22)
[2019-01-27] MEDS ORDERED: amLODIPine BESYLATE 5 MG TABLET (FP) PO ONE (13:30)
[2019-01-27 14:19] VITALS: BP 159/109; PULSE 81; TEMP 98.2
--- NOTE | 2019-01-27 14:36 | EKG ---
Test Reason : Blood Pressure : / mmHG Vent. Rate : 084 BPM Atrial Rate : 084 BPM P-R Int : 140 ms QRS Dur : 082 ms QT Int : 382 ms P-R-T Axes : 024 019 080 degrees QTc Int : 451 ms NORMAL SINUS RHYTHM POSSIBLE LEFT ATRIAL ENLARGEMENT NONSPECIFIC T WAVE ABNORMALITY ABNORMAL ECG NO PREVIOUS ECGS AVAILABLE Confirmed by VINICIO RINCON MD ([id number]) on 01/27/2019 2:36:23 PM Referred By: Confirmed By:VINICIO RINCON MD
--- NOTE | 2019-01-27 14:40 | PN ---
Teaching Attending Note Name of Resident: Opal Bourne ATTENDING PHYSICIAN STATEMENT I saw and evaluated the patient. I reviewed the resident's note and discussed the case with the resident. I agree with the resident's findings and plan as documented. SUBJECTIVE: No fever or chills. pain in R knee is much better . can walk. reprots episodes of ankles becoming painful and red one at a time. no BANUELOS , SOB or cp OBJECTIVE: NAD Cv : RRR Lungs: CTAB Ext: no edema or erythema. on LLE . R knee with slight edema , increased warmth , no effusion detected on exam. no erythema. no TTP . bends knee 90 degrees. ASSESSMENT AND PLAN: 44 y/o man with h/o HTN, and ETOH abuse who presented with R knee pain and swelling. 1- R knee pain and effusion: due to crystal induced inflammatory Arthritis. synovial fluild analysis reviewed. G stainneg . cx pending . will call lab for type of crystals ( gout vs pseudogout ) will repeat BMp to decide on tyle of treatment if gout will ask him not to resume his HCTZ> send urine for Gonorrhea. low suspicion lyme pending 2- H/o HTN: will confirm meds and resume 3- Sy VS CKD. on IVF. repeat BMP now dispo : possible dc home today
[2019-01-27 14:54] LABS: BASO % 0.7 % (0-2.0); EOS % 0.5 % (0-4.5); HEMATOCRIT 37.9 % (35.4-49); LYMPH % 14.7 % (8-40); MCH 32.9 pg (25.7-33.7); MCHC 34.3 g/dl (32.0-35.9); MEAN CELL VOLUME 95.8 fl (80-96); MEAN PLT VOLUME 10.2 fl (7.5-11.1); MONO % 8.6 % (3.8-10.2); NEUT % 75.5 % (42.8-82.8); PLATELET COUNT 252 K/MM3 (134-434); RBC 3.96 M/mm3 (4.00-5.60); RDW 16.5 % (11.9-15.9); WHITE BLOOD COUNT 10.1 K/mm3 (4.0-10.0)
[2019-01-27 15:23] LABS: ALBUMIN 3.3 g/dl (3.4-5.0); BILIRUBIN,TOTAL 0.7 mg/dL (0.2-1); BLOOD UREA NITROGEN 19.3 mg/dL (7-18); CALCIUM 8.4 mg/dL (8.5-10.1); CREATININE 1.3 mg/dL (0.55-1.3); MAGNESIUM 1.8 mg/dL (1.8-2.4); POTASSIUM 3.4 mmol/L (3.5-5.1); TOT PROT 7.5 g/dl (6.4-8.2)
[2019-01-27 16:49] LABS: ALBUMIN 3.4 g/dl (3.4-5.0); BILIRUBIN,TOTAL 0.5 mg/dL (0.2-1); BLOOD UREA NITROGEN 18.8 mg/dL (7-18); CALCIUM 8.6 mg/dL (8.5-10.1); CREATININE 1.3 mg/dL (0.55-1.3); POTASSIUM 3.5 mmol/L (3.5-5.1); TOT PROT 7.5 g/dl (6.4-8.2)
--- NOTE | 2019-01-27 18:53 | DS ---
Physical Exam: SUBJECTIVE: Patient seen and examined. Pt appears comfortable. Pt reports no c/ o or issues. No fever, asymptomatic and c/o of no issues. Denies f/c/n/v/d. OBJECTIVE: Vital Signs Last Vital Signs Temp Pulse Resp BP Pulse Ox 98.2 F 81 18 159/109 H 98 01/27/19 14:18 01/27/19 14:18 01/27/19 14:18 01/27/19 14:18 01/27/19 03:55 PHYSICAL EXAM GENERAL: The patient is awake, alert, and fully oriented, in no acute distress. EYES: PERRL, extraocular movements intact, ENT: oropharynx clear without exudates, moist mucous membranes. NECK: full range of motion, supple. LUNGS: Breath sounds equal, clear to auscultation bilaterally, no wheezes, no crackles, HEART: Regular rate and rhythm, S1, S2 without murmur, rub or gallop. ABDOMEN: Soft, nontender, nondistended, normoactive bowel sounds, no guarding, no rebound, EXTREMITIES: 2+ pulses, warm, Right knee inflammed, red, swollen and warm NEUROLOGICAL: Cranial nerves II through XII grossly intact. LABS Laboratory Results - last 24 hr CBC,CMP WBC 10.1 K/mm3 (4.0-10.0) H 01/27/19 14:13 RBC 3.96 M/mm3 (4.00-5.60) L 01/27/19 14:13 Hgb 13.0 GM/dL (11.7-16.9) 01/27/19 14:13 Hct 37.9 % (35.4-49) 01/27/19 14:13 MCV 95.8 fl (80-96) 01/27/19 14:13 MCH 32.9 pg (25.7-33.7) 01/27/19 14:13 MCHC 34.3 g/dl (32.0-35.9) 01/27/19 14:13 RDW 16.5 % (11.9-15.9) H 01/27/19 14:13 Plt Count 252 K/MM3 (134-434) 01/27/19 14:13 MPV 10.2 fl (7.5-11.1) 01/27/19 14:13 Absolute Neuts (auto) 7.7 K/mm3 (1.5-8.0) 01/27/19 14:13 Neutrophils % 75.5 % (42.8-82.8) 01/27/19 14:13 Lymphocytes % 14.7 % (8-40) D 01/27/19 14:13 Monocytes % 8.6 % (3.8-10.2) 01/27/19 14:13 Eosinophils % 0.5 % (0-4.5) 01/27/19 14:13 Basophils % 0.7 % (0-2.0) 01/27/19 14:13 Nucleated RBC % 0 % (0-0) 01/27/19 14:13 ESR 58 mm/hr (0-10) H 01/27/19 14:13 Sodium 136 mmol/L (136-145) 01/27/19 15:20 Potassium 3.5 mmol/L (3.5-5.1) 01/27/19 15:20 Chloride 101 mmol/L (98-107) 01/27/19 15:20 Carbon Dioxide 27 mmol/L (21-32) 01/27/19 15:20 Anion Gap 8 MMOL/L (8-16) 01/27/19 15:20 BUN 18.8 mg/dL (7-18) H 01/27/19 15:20 Creatinine 1.3 mg/dL (0.55-1.3) 01/27/19 15:20 Est GFR (CKD-EPI)AfAm 76.91 01/27/19 15:20 Est GFR (CKD-EPI)NonAf 66.36 01/27/19 15:20 Random Glucose 100 mg/dL (74-106) 01/27/19 15:20 Uric Acid 10.5 mg/dL (2.6-7.2) H 01/26/19 16:30 Calcium 8.6 mg/dL (8.5-10.1) 01/27/19 15:20 Phosphorus 2.0 mg/dL (2.5-4.9) L 01/27/19 14:13 Magnesium 1.8 mg/dL (1.8-2.4) 01/27/19 14:13 Total Bilirubin 0.5 mg/dL (0.2-1) 01/27/19 15:20 AST 21 U/L (15-37) 01/27/19 15:20 ALT 30 U/L (13-61) 01/27/19 15:20 Alkaline Phosphatase 63 U/L (45-117) 01/27/19 15:20 C-Reactive Protein 8.0 MG/DL (0.00-0.3) H 01/27/19 14:13 Total Protein 7.5 g/dl (6.4-8.2) 01/27/19 15:20 Albumin 3.4 g/dl (3.4-5.0) 01/27/19 15:20 HOSPITAL COURSE: Date of Admission:01/26/19 44 y/o male w/ hx ETOH abuse and HTN presents with 2 days of right knee pain and swelling likely 2/2 to crystal induced inflammatory arthritis. Synovial fluid was analyzed and it showed crystal, hence r/o septic arthritis. The type of crystal is still pending. Pt was also worked for gonorrhea and results have not returned. Pt was treated with antibiotics and pain medications, which relieved his symptoms. Pt was discharged home on his home meds and naproxen 250 BID for 3 days. EKG: NSR, possible left atrial enlargement Knee xray- joint effusion and swelling Synovial fluid analysis- crystals Home Medications Medication Instructions Recorded Nebivolol HCl [Bystolic] 10 mg PO DAILY 01/28/18 Amlodipine Besylate 5 mg DAILY 01/27/19 Fluocinonide 0.05% Cream [Lidex 1 applic TP DAILY 01/27/19 0.05% Cream -] Naproxen [Naprosyn -] 250 mg PO BID #6 tablet 01/27/19 Date of Discharge: 01/27/19 Minutes to complete discharge: 40 Discharge Summary Problems reviewed: Yes Reason For Visit: GOUT, SEPTIC ARTHRITIS Current Active Problems Gout (Acute) Condition: Improved - Instructions Diet, Activity, Other Instructions: You were admitted to the hospital for right knee pain While you were in the hospital, we evaluated you for possible causes of your symptoms with lab work, blood work, imaging such as x rays of your knee, and EKGs. We treated you for your knee pain with medications and your symptoms improved. you have gout Please take Naproxen 250mg once a day for 3 days to treat your knee pain. Please stop taking the Hydrochlorothiazide. Follow up with your primary care physician in 1 week to recheck your kidney functions. Return to the emergency room if you have chest pain, shortness of breath, nausea , vomiting or worsening of symptoms. Lyme and gonorrhea testing results are still pending. please follow with your primary doctor and ask him to get the results check your blood pressure daily and take log to PCP follow up with dr. Petersen , the gun [employer] manager for your gout Referrals: Tr Enamorado MD [Staff Physician] - 2 Weeks Rudolph Arthur MD [Staff Physician] - Disposition: HOME - Home Medications Comprehensive Discharge Medication List: Ambulatory Orders Nebivolol HCl [Bystolic] 10 mg PO DAILY 01/28/18 Amlodipine Besylate 5 mg DAILY 01/27/19 Fluocinonide 0.05% Cream [Lidex 0.05% Cream -] 1 applic TP DAILY 01/27/19 Naproxen [Naprosyn -] 250 mg PO BID #6 tablet 01/27/19 This patient is new to me today: Yes Date on this admission: 01/27/19 Emergency Visit: Yes ED Registration Date: 01/26/19 Care time: The patient presented to the Emergency Department on the above date and was hospitalized for further evaluation of their emergent condition. Critical Care patient: No - Discharge Referral Referred to [facility] No ATTENDING PHYSICIAN STATEMENT I saw and evaluated the patient. I reviewed the resident's note and discussed the case with the resident. I agree with the resident's findings and plan as documented. SUBJECTIVE: OBJECTIVE: ASSESSMENT AND PLAN:
[2019-01-28] MEDS ORDERED: NEBIVOLOL 10 MG TABLET (FP) PO SCH (10:00)
== END 2019-01-27 18:43 | disposition home or self-care (01) | DRG 554 ==
LOC: JER 14:39 → JERBED 23:03 → J6S 01-27 03:31
PROVIDERS: ADMIT Internal Medicine; ATTEND Internal Medicine
PROC: 0S9C3ZX Drainage of Right Knee Joint, Percutaneous Approach, Diagnostic (ICD-10-PCS; principal; 2019-01-26)
DX: M10.9 Gout, unspecified (principal); N17.9 Acute kidney failure, unspecified; M13.161 Monoarthritis, not elsewhere classified, right knee; I10 Essential (primary) hypertension; F10.10 Alcohol abuse, uncomplicated; E87.6 Hypokalemia; I12.9 Hypertensive chronic kidney disease with stage 1 through stage 4 chronic kidney disease, or unspecified chronic kidney disease; N18.9 Chronic kidney disease, unspecified
CPT/HCPCS: 36415; 73562-TC-RT-FY; 80048; 80053; 83735; 84100; 84550; 85025; 85651; 86140; 86618; 87040; 87070; 87075; 87205; 87476; 89051; 89060; 93005; 93010; 97116-GP; 97161-GP; 99284-25; J1644; J7030

== ENCOUNTER 2019-10-12 12:47 | Emergency (ER) | payer OTHER ==
--- NOTE | 2019-10-12 12:54 | PDOC ---
Rapid Medical Evaluation Time Seen by Provider: 10/12/19 12:50 Medical Evaluation: Allergies Allergy/AdvReac Type Severity Reaction Status Date / Time No Known Allergies Allergy Verified 04/02/18 02:25 10/12/19 12:50 I have performed a brief in-person evaluation of this patient. CC: right rib pain s/p trip and fall onto bed frame PE: Lungs CTAB. Poor effort with inspiration 2/2 pain. No deformities to right ribs. No flail chest. Orders: ribs and chest xrays, tylenol Patient will proceed to ED for further evaluation. Discharge Disposition - Diagnosis Rib pain on right side - Referrals - Patient Instructions - Post Discharge Activity
[2019-10-12] MEDS ORDERED: ACETAMINOPHEN 500 MG TABLET (FP) PO ONE (12:55)
[2019-10-12 12:57] VITALS: TEMP 99; BMI 34.8
[2019-10-12] MEDS ORDERED: ACETAMINOPHEN 325 MG TABLET (FP) ONE (13:15)
--- NOTE | 2019-10-12 13:55 | PDOC ---
History of Present Illness - General Chief Complaint: Injury Stated Complaint: RT RIB INJURY Time Seen by Provider: 10/12/19 12:50 History Source: Patient Exam Limitations: No Limitations - History of Present Illness Initial Comments: 10/12/19 13:52 53-year-old male denies past medical history presents complaining of right knee pain intermittently since December 2018 after twisting injury while at work. 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 He took ibuprofen 400 mg at 6 AM and 12 PM today, applied ice. Denies trauma, fever, chills, calf pain, leg swelling or any other complaints. ROS: right-sided rib pain PE: GENERAL: well-appearing, NAD HEAD: NCAT EYES: Pupils equal, round and reactive to light, sclera anicteric, conjunctiva clear ENT: pharynx: no erythema, no exudate, uvula midline NECK: supple CHEST: Minimal tenderness to palpation to right anterior chest wall, no crepitus, no step-offs, no ecchymosis noted RESP: clear, no w/r/r CARDIO: rrr, no m/g/r ABD: +BS, soft, nontender, non distended BACK: no midline spinal ttp, no CVAT EXTREMITIES: Normal range of motion, no edema NEUROLOGICAL: Normal speech, normal gait SKIN: Warm, Dry 10/12/19 14:19 Is this a multiple visit Asthma Patient?: No Past History - Medical History Allergies/Adverse Reactions: Allergies Allergy/AdvReac Type Severity Reaction Status Date / Time No Known Allergies Allergy Verified 10/12/19 12:56 Home Medications: Ambulatory Orders Nebivolol HCl [Bystolic] 10 mg PO DAILY 01/28/18 Amlodipine Besylate 5 mg DAILY 01/27/19 Fluocinonide 0.05% Cream [Lidex 0.05% Cream -] 1 applic TP DAILY 01/27/19 Naproxen [Naprosyn -] 250 mg PO BID #6 tablet 01/27/19 Ibuprofen 600 mg PO Q6H #20 tablet 10/12/19 Anemia: No Asthma: No Cancer: No Cardiac Disorders: No CVA: No COPD: No CHF: No Dementia: No Diabetes: No GI Disorders: No Disorders: No HTN: Yes Hypercholesterolemia: No Liver Disease: No Seizures: No Thyroid Disease: No - Surgical History Abdominal Surgery: No Appendectomy: No Cardiac Surgery: No Cholecystectomy: No Lung Surgery: No Neurologic Surgery: No Orthopedic Surgery: Yes - Psycho-Social/Smoking History Smoking History: Never smoked Have you smoked in the past 12 months: No Information on smoking cessation initiated: No - Substance Abuse Hx (Audit-C & DAST Scrn) How often the patient has a drink containing alcohol: Never Score: In Men: 4 or > Positive; In Women: 3 or > Positive: 0 Screen Result (Pos requires Nsg. Audit-10AR): Negative In the last yr the pt used illegal drug/Rx for NonMed reason: No Score: Yes response is considered Positive: 0 Screen Result (Positive result requires Nsg. DAST-10): Negative *Physical Exam - Vital Signs Last Vital Signs Temp Pulse Resp BP Pulse Ox 99.0 F 101 H 18 172/126 H 95 10/12/19 12:51 10/12/19 13:39 10/12/19 12:51 10/12/19 13:39 10/12/19 12:51 ED Treatment Course - Medications Given in the ED: ED Medications Discontinued Medications Generic Name Dose Route Start Last Admin Trade Name Freq PRN Reason Stop Dose Admin Acetaminophen 975 mg 10/12/19 12:55 10/12/19 13:17 Tylenol - PO 10/12/19 12:56 975 mg ONCE ONE Administration Medical Decision Making - Medical Decision Making 10/12/19 14:19 53-year-old male denies past medical history presents complaining of right knee pain intermittently since December 2018 after twisting injury while at work. 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 He took ibuprofen 400 mg at 6 AM and 12 PM today, applied ice. Denies trauma, fever, chills, calf pain, leg swelling or any other complaints. Chest x-ray and right-sided rib x-ray -no acute findings noted P.o. analgesia Incentive spirometer provided, patient instructed on how to use spirometer Strict return precautions discussed with patient 10/12/19 14:54 Discharge - Discharge Information Problems reviewed: Yes Clinical Impression/Diagnosis: Rib pain on right side Condition: Stable Disposition: HOME - Admission No - Follow up/Referral - Patient Discharge Instructions - Post Discharge Activity
[2019-10-12] MEDS ORDERED: oxyCODONE HCL 10 MG SUSTAINED ACTING TABLET PO ONE (13:56)
[2019-10-12 13:57] VITALS: BP 172/126; PULSE 101
[2019-10-12] MEDS ORDERED: oxyCODONE HCL 5 MG TABLET ONE (13:59)
--- NOTE | 2019-10-13 10:35 | EKG ---
Test Reason : Blood Pressure : / mmHG Vent. Rate : 101 BPM Atrial Rate : 101 BPM P-R Int : 130 ms QRS Dur : 088 ms QT Int : 350 ms P-R-T Axes : 024 019 068 degrees QTc Int : 453 ms SINUS TACHYCARDIA POSSIBLE LEFT ATRIAL ENLARGEMENT NONSPECIFIC T WAVE ABNORMALITY WHEN COMPARED WITH ECG OF 26-JAN-2019 14:53, NO SIGNIFICANT CHANGE WAS FOUND Confirmed by VINICIO RINCON MD ([id number]) on 10/13/2019 10:35:32 AM Referred By: Confirmed By:VINICIO RINCON MD
== END 2019-10-12 15:05 | disposition home or self-care (01) ==
LOC: JERFT 12:47
DX: R07.81 Pleurodynia (principal)
CPT/HCPCS: 71046-TC-FY; 71101-TC-RT-FY; 93005; 93010; 99284-25

== ENCOUNTER 2019-12-06 05:07 | Day surgery (SDC) | payer OTHER ==
[2019-12-06 09:38] LABS: EOS % 4.2 % (0-4.5); HEMATOCRIT 40.2 % (35.4-49); HEMOGLOBIN 13.3 GM/dL (11.7-16.9); MCH 30.1 pg (25.7-33.7); MCHC 33.2 g/dl (32.0-35.9); MEAN CELL VOLUME 90.6 fl (80-96); MEAN PLT VOLUME 8.5 fl (7.5-11.1); MONO % 9.3 % (3.8-10.2); NEUT % 60.5 % (42.8-82.8); PLATELET COUNT 361 K/MM3 (134-434); RBC 4.44 M/mm3 (4.00-5.60); RDW 22.4 % (11.9-15.9); WHITE BLOOD COUNT 6.3 K/mm3 (4.0-10.0)
[2019-12-06 09:48] LABS: INR 1.03 (0.83-1.09); PROTHROMBIN TIME (PATIENT) 12.2 SEC (9.7-13.0)
[2019-12-06 09:59] VITALS: BMI 32.3
[2019-12-06] MEDS ORDERED: hydrALAZINE HCL 20 MG/ML VIAL ONE (10:51)
[2019-12-06 11:38] LABS: ANISOCYTOSIS 1+; MACROCYTOSIS 0; PLATELET ESTIMATE NORMAL
[2019-12-06 15:04] VITALS: BP 173/105; PULSE 76; TEMP 97.8
== END 2019-12-06 13:55 | disposition home or self-care (01) ==
LOC: JRADIR 05:07
PROVIDERS: ATTEND Internal Medicine Pulmonary Disease
PROC: 0W993ZZ Drainage of Right Pleural Cavity, Percutaneous Approach (ICD-10-PCS; principal; 2019-12-06)
DX: J90 Pleural effusion, not elsewhere classified (principal)
CPT/HCPCS: 36415; 71045-TC-FY; 76942; 85025; 85610

== ENCOUNTER → 2019-12-27 | Day surgery (SDC) | payer OTHER ==
--- NOTE | 2019-12-29 19:42 | PATH ---
Cytology Non-Gynecological Report Patient Name: DESEAN BRYANT [facility]. Rec. #: [id number] /Age/Gender: 1975 (Age: 44) / M Account: [id number] Location: RADIOLOGY INTER Taken: 12/27/2019 Received: 12/27/2019 Reported: 12/29/2019 Physicians: Dottie Go M.D. Specimen(s) Received THYROID FNA Clinical History Left lobe nodule 5.06 x 2.96 x 3.68cm Final Diagnosis THYROID, LEFT, FINE NEEDLE ASPIRATION: SATISFACTORY FOR EVALUATION B[place] CLASS II: BENIGN BENIGN FOLLICULAR CELLS, METAPLASTIC HURTHLE CELLS, NUMEROUS MACROPHAGES, AND ABUNDANT COLLOID PRESENT, SUGGESTIVE OF A COLLOID NODULE. CLINICAL CORRELATION IS RECOMMENDED. Electronically Signed Shanda Mejias M.D. Gross Description Received are eight direct smears, four of which are air-dried and Diff-Quik stained, and four of which are alcohol fixed and Pap stained. Also received is 20 ml of bloody formalin from which one cellblock is prepared.
== END | disposition home or self-care (01) ==
LOC: JRADIR 11:05
PROVIDERS: ATTEND Internal Medicine
PROC: 0G9G3ZX Drainage of Left Thyroid Gland Lobe, Percutaneous Approach, Diagnostic (ICD-10-PCS; principal; 2019-12-27)
DX: E04.1 Nontoxic single thyroid nodule (principal)
CPT/HCPCS: 76942; 88173; 88305-TC

== ENCOUNTER 2022-03-05 15:42 | Emergency (ER) | payer OTHER ==
[2022-03-05 16:00] VITALS: TEMP 98; BMI 33.2
[2022-03-05] MEDS ORDERED: KETOROLAC TROMETHAMINE 30 MG/1 ML VIAL IM ONE (17:48)
[2022-03-05] MEDS ORDERED: KETOROLAC TROMETHAMINE 30 MG/1 ML VIAL ONE (17:57)
[2022-03-05] MEDS ORDERED: LIDOCAINE 5% TOPICAL PATCH TP ONE (18:00)
[2022-03-05] MEDS ORDERED: CYCLOBENZAPRINE HCL 10 MG TABLET (FP) PO ONE (18:01)
[2022-03-05] MEDS ORDERED: LIDOCAINE 5% TOPICAL PATCH ONE (18:58)
[2022-03-05] MEDS ORDERED: CYCLOBENZAPRINE HCL 5 MG TABLET ONE (18:58)
[2022-03-05 19:08] LABS: BASO % 0.4 % (0-2.0); EOS % 2.1 % (0-4.5); HEMATOCRIT 42.2 % (35.4-49); HEMOGLOBIN 14.3 GM/dL (11.7-16.9); LYMPH % 19.1 % (8-40); MCHC 33.7 g/dl (32.0-35.9); MEAN CELL VOLUME 97.9 fl (80-96); MEAN PLT VOLUME 9.6 fl (7.5-11.1); MONO % 10.7 % (3.8-10.2); NEUT % 67.7 % (42.8-82.8); PLATELET COUNT 247 10^3/uL (134-434); RBC 4.31 M/mm3 (4.00-5.60); RDW 15.9 % (11.9-15.9); WHITE BLOOD COUNT 8.6 K/mm3 (4.0-10.0)
[2022-03-05 19:29] LABS: ALBUMIN 3.8 g/dl (3.4-5.0); BLOOD UREA NITROGEN 22.6 mg/dL (7-18); CALCIUM 8.7 mg/dL (8.5-10.1)
[2022-03-05 19:33] LABS: BILIRUBIN,TOTAL 0.6 mg/dL (0.2-1)
[2022-03-05 20:48] LABS: EPI CELLS 8 /uL (0-25.1); HYALINE CASTS 4 /uL (0-3.1); PH,URINE 5.5 (5.0-8.0); URINE APPEARANCE CLEAR; URINE BACTERIA 1 /uL (0-1359); URINE BILIRUBIN NEGATIVE (NEGATIVE); URINE COLOR YELLOW; URINE GLUCOSE (UA) NEGATIVE (NEGATIVE); URINE KETONE TRACE (NEGATIVE); URINE LEUK ESTERASE NEGATIVE (NEGATIVE); URINE NITRITE NEGATIVE (NEGATIVE); URINE PROTEIN 1+ (NEGATIVE); URINE RBC 15 /uL (0-23.9); URINE WBC 10 /uL (0-25.8)
[2022-03-05] MEDS ORDERED: ACETAMINOPHEN 500 MG TABLET (FP) PO ONE (21:25)
[2022-03-05] MEDS ORDERED: ACETAMINOPHEN 325 MG TABLET (FP) ONE (21:31)
[2022-03-05] MEDS ORDERED: LACTATED RINGERS SOLUTION 1000 ML INFUS.BAG IV ONE (21:33)
[2022-03-05] MEDS ORDERED: LIDOCAINE PATCH REMOVAL MC SCH (22:00)
[2022-03-06] MEDS ORDERED: KETOROLAC TROMETHAMINE 30 MG/1 ML VIAL IM ONE (02:46)
[2022-03-06] MEDS ORDERED: KETOROLAC TROMETHAMINE 30 MG/1 ML VIAL ONE (02:59)
[2022-03-06 03:13] VITALS: BP 130/77; PULSE 88; RESP 18
[2022-03-06 05:43] LABS: CREATININE 1.4 mg/dL (0.55-1.3)
== END 2022-03-06 06:04 | disposition home or self-care (01) ==
LOC: JER 15:42
PROC: 3E0233Z Introduction of Anti-inflammatory into Muscle, Percutaneous Approach (ICD-10-PCS; principal; 2022-03-05)
PROC: 3E0233Z Introduction of Anti-inflammatory into Muscle, Percutaneous Approach (ICD-10-PCS; 2022-03-05)
DX: M54.50 Low back pain, unspecified (principal); M54.6 Pain in thoracic spine
CPT/HCPCS: 0241U-QW; 36415; 71046-TC-FY; 74176-TC; 80053; 81003; 82565; 84484; 85025; 87086; 93005; 93010; 99285-25

== ENCOUNTER 2023-08-28 22:40 | Emergency (ER) | payer OTHER ==
[2023-08-28 22:49] VITALS: TEMP 98.7; BMI 33.2
[2023-08-28] MEDS ORDERED: KETOROLAC TROMETHAMINE 30 MG/1 ML VIAL ONE (23:23)
[2023-08-28] MEDS ORDERED: amLODIPine BESYLATE 10 MG TABLET (FP) ONE (23:23)
[2023-08-28] MEDS ORDERED: predniSONE 20 MG TABLET (UD) ONE (23:23)
[2023-08-28] MEDS: LOSARTAN 50MG/HCTZ 12.5MG 1 TAB PO ONE (23:39)
[2023-08-28] MEDS: amLODIPine BESYLATE 10 MG TABLET (FP) PO ONE (23:39)
[2023-08-28] MEDS: predniSONE 20 MG TABLET (UD) PO ONE (23:40)
[2023-08-28] MEDS: KETOROLAC TROMETHAMINE 30 MG/1 ML VIAL IM ONE (23:40)
[2023-08-28] MEDS ORDERED: METHOCARBAMOL 500 MG TABLET ONE (23:42)
[2023-08-28] MEDS: METHOCARBAMOL 750 MG TABLET PO ONE (23:44)
[2023-08-29 00:44] LABS: EPI CELLS 2 /uL (0-25.1); HYALINE CASTS 0 /uL (0-3.1); PH,URINE 6.5 (5.0-8.0); URINE APPEARANCE CLEAR; URINE BACTERIA 2 /uL (0-1359); URINE BILIRUBIN NEGATIVE (NEGATIVE); URINE COLOR YELLOW; URINE GLUCOSE (UA) NEGATIVE (NEGATIVE); URINE KETONE NEGATIVE (NEGATIVE); URINE LEUK ESTERASE NEGATIVE (NEGATIVE); URINE NITRITE NEGATIVE (NEGATIVE); URINE PROTEIN 1+ (NEGATIVE); URINE RBC 8 /uL (0-23.9); URINE UROBILINOGEN 0.2 mg/dL (0.2-1.0); URINE WBC 1 /uL (0-25.8)
[2023-08-29 02:22] VITALS: BP 162/123; PULSE 96; RESP 16
[2023-08-29] MEDS ORDERED: predniSONE 20 MG TABLET (UD) PO ONE (23:19)
== END 2023-08-29 02:52 | disposition home or self-care (01) ==
LOC: JER 22:40
PROC: 3E0233Z Introduction of Anti-inflammatory into Muscle, Percutaneous Approach (ICD-10-PCS; principal; 2023-08-28)
DX: M54.9 Dorsalgia, unspecified (principal); M10.9 Gout, unspecified; I10 Essential (primary) hypertension; M25.572 Pain in left ankle and joints of left foot
CPT/HCPCS: 71046-TC-FY; 73610-TC-LT-FY; 73610-TC-RT-FY; 73630-TC-LT; 73630-TC-RT-FY; 81003; 87086; 99284-25

== ENCOUNTER 2024-12-01 15:12 | Emergency (ER) | payer OTHER ==
[2024-12-01 15:27] VITALS: BP 150/102; PULSE 82; RESP 20; TEMP 98; BMI 33.5
== END 2024-12-01 17:44 | disposition home or self-care (01) ==
LOC: JERFT 15:12
DX: H61.22 Impacted cerumen, left ear (principal)
CPT/HCPCS: 99283-25